=== PATIENT | male | born 1995 | race Caucasian/White ===

== ENCOUNTER → 2018-01-13 | Outpatient (CLI) | payer OTHER ==
[~2018-01-13] MED LIST: MOTRIN800 MG PO
== END | disposition home or self-care (01) ==
LOC: RAD 16:14
DX: M25.441 Effusion, right hand (principal); M79.641 Pain in right hand

== ENCOUNTER 2018-02-10 16:57 | Emergency (ER) | payer OTHER ==
[~2018-02-10] VITALS: Ht 182.8 cm; Wt 93.0 kg
== END 2018-02-10 19:22 | disposition home or self-care (01) ==
LOC: ED 16:57
DX: S80.12XA Contusion of left lower leg, initial encounter (principal); X50.1XXA Overexertion from prolonged static or awkward postures, initial encounter; Y93.67 Activity, basketball; Y92.39 Other specified sports and athletic area as the place of occurrence of the external cause; Y99.8 Other external cause status

== ENCOUNTER 2020-02-04 17:38 | Emergency (ER) | payer SELFPAY ==
[~2020-02-04] VITALS: Ht 182.8 cm; Wt 88.5 kg
== END 2020-02-04 18:58 | disposition home or self-care (01) ==
LOC: ED 17:38
DX: R50.9 Fever, unspecified (principal); Z20.828 Contact with and (suspected) exposure to other viral communicable diseases

== ENCOUNTER 2022-02-02 21:47 | Emergency (ER) | payer SELFPAY ==
[~2022-02-02] VITALS: Wt 93.0 kg
== END 2022-02-03 00:15 | disposition home or self-care (01) ==
LOC: ED 21:47
DX: S61.012A Laceration without foreign body of left thumb without damage to nail, initial encounter (principal); W26.0XXA Contact with knife, initial encounter; Y93.89 Activity, other specified; Y92.89 Other specified places as the place of occurrence of the external cause; Y99.8 Other external cause status

== ENCOUNTER 2022-03-23 09:38 | Emergency (ER) | payer SELFPAY ==
[~2022-03-23] VITALS: Wt 90.7 kg
[2022-03-23 10:12] LABS: BASO % 0.2 % (0.0-1.0); HEMATOCRIT 51.4 % (42.0-52.0); LYMPH # 1.5 10*3/uL (1.3-4.4); LYMPH % 8.7 % (27.0-41.0); MEAN CELL VOLUME 87.6 fl (80.0-94.0); MEAN CORPUSCULAR HGB CONC 34.2 g/dl (33.0-37.0); MEAN PLATELET VOLUME 9.8 fl (9.6-12.3); MONO # 0.3 10*3/uL (0.1-1.0); MONO % 1.7 % (3.0-9.0); PLATELET COUNT AUTOMATED 362 10*3/uL (130-400); RED BLOOD COUNT 5.87 10*6/uL (4.50-5.90); WHITE BLOOD COUNT 16.9 10*3/uL (4.8-10.8)
[2022-03-23 10:35] LABS: ALKALINE PHOSPHATASE 125 U/L (46-116); BUN 12 mg/dl (9-23); CHLORIDE 103 mmol/L (98-107); CREATININE 0.94 mg/dL (0.70-1.30); POTASSIUM 4.3 mmol/L (3.4-5.1); SGPT/ALT 14 U/L (10-49); SODIUM 138 mmol/L (136-145); TOTAL PROTEIN 7.7 gm/dL (6.0-8.0)
== END 2022-03-23 10:33 | disposition left against medical advice (07) ==
LOC: ED 09:38
PROVIDERS: Student in an Organized Health Care Education/Training Program
DX: F11.23 Opioid dependence with withdrawal (principal)